=== PATIENT | male | born 1990 | race Caucasian/White ===

== ENCOUNTER 2023-03-07 02:02 | Emergency (ER) | payer SELFPAY ==
--- NOTE | 2023-03-07 02:08 | ED.ANIMALBIT ---
HPI - Animal Bite General Chief Complaint: Animal Bite Stated Complaint: Dog Bite, Right middle finger Time Seen by Provider: 03/07/23 02:03 History of Present Illness HPI narrative: Patient is a 32-year-old gentleman who is up-to-date on his tetanus shot who was bit in the right middle finger over the nail bed by his or his neighbor dog marlene. He believes the dogs are up-to-date on their vaccinations. One dog lives with him is not been acting unusual. The other dog is been confined at his neighbor's house. He was roughhousing with his dog in the neighbor dog as both were worked up. Patient suffered a small puncture injury to the distal digit which does not appear to require sutures. He did not clean the wound but has been drinking alcohol heavily since the incident proximally 2 hours ago. Patient shows no signs of infection no fevers no chills he has no redness and any inflammation is confined to the puncture in the distal middle digit right hand. We did confirm that his tetanus shot was given in 2016. No concern about rabies on either dog. Please has been contacted. Related Data Patient tetanus UTD: Yes Home Medications Medication Instructions Recorded Confirmed No Known Home Medications 03/07/23 03/07/23 Allergies Allergy/AdvReac Type Severity Reaction Status Date / Time No Known Drug Allergies Allergy Verified 03/07/23 02:12 Review of Systems Status of ROS: Reports: 10 or more systems reviewed and unremarkable except as noted in History and below Exam Narrative: Exam Narrative: EXAM GENERAL: Patient appears comfortable and well. Patient is intoxicated EYES: No scleral icterus. LYMPH: No supraclavicular or cervical lymphadenopathy. SKIN: Visible skin seen during exam normal or with benign process only. EXT: No dependent lower extremity pedal edema. HEART: Regular rate and rhythm with no murmurs, rubs, or gallops. LUNGS: Clear to auscultation bilaterally with no crackles or wheezes. ABD: Soft, non tender, non distended. PSYCH: Good eye contact, speech is not pressured. Course Course Hospital Course: Patient seen examined. Wound was carefully examined and cleaned. No sutures needed. Wound was dressed. Patient will be started on Augmentin for the next week. Tetanus shot is up-to-date. Please contacted and dogs are quarantined. No signs of infection at this time. MDM - Animal Bite Differential Diagnosis Differential diagnosis: Likely bite by animal and dog bite Discharge Plan Discharge Clinical Impression: Bite by animal Condition: Stable Instructions: Animal Bite (ED) Additional Instructions: Tylenol Motrin Augmentin for 7 days Daily dressing changes Watch for signs of infection Keep dogs quarantine per police Activity Level: No Restrictions Discharge Diet: Regular Stand Alone Forms: [facility] Info Instructions
--- NOTE | 2023-03-07 02:08 | ED.NURSE ---
Last tetanus was 03/03/2016.
--- NOTE | 2023-03-07 02:09 | ED.NURSE ---
[facility].
[2023-03-07 02:12] VITALS: BP 132/74; PULSE 79; RESP 18; TEMP 36.8; O2SAT 99; BMI 23.1
--- NOTE | 2023-03-07 02:26 | ED.NURSE ---
[facility] here to see patient. puncture wound cleaned up and bacitracin and bandaid applied. pt. will d/c after pd sees patient.
[2023-03-07 02:27] VITALS: BP 132/74; PULSE 79; RESP 18; TEMP 36.8; O2SAT 99
== END 2023-03-07 02:38 | disposition home or self-care (01) ==
LOC: ED 02:20
PROVIDERS: Emergency Provider Internal Medicine
DX: S61.352A Open bite of right middle finger with damage to nail, initial encounter (principal); W54.0XXA Bitten by dog, initial encounter
CPT/HCPCS: 99283